=== PATIENT | male | born 1970 | race Caucasian/White ===

== ENCOUNTER 2017-10-01 09:11 | Emergency (ER) | payer BC ==
[2017-10-01 09:47] VITALS: BP 118/79
--- NOTE | 2017-10-01 10:38 | UC ---
General HPI - HPI Summary HPI Summary: pt states wears cpap and noted pain to R side of his cheek 2 days ago. the area is now swollen and he has a puffy spot(points to R upper gum by molars). denies dental pain. - History of Current Complaint Chief Complaint: UCDentalProblem Stated Complaint: DENTAL COMPLAINT/FACIAL SWELLING Time Seen by Provider: 10/01/17 10:31 Hx Obtained From: Patient Onset/Duration: Gradual Onset Timing: Constant Pain Intensity: 7 Aggravating: pressure from cpap mask. Alleviating: nothing - Allergy/Home Medications Allergies/Adverse Reactions: Allergies Allergy/AdvReac Type Severity Reaction Status Date / Time meperidine [From Demerol] Allergy Unknown Verified 10/01/17 09:45 Reaction Details PMH/Surg Hx/FS Hx/Imm Hx - Additional Past Medical History Additional PMH: MALIKA - Surgical History Surgical History: Yes Surgery Procedure, Year, and Place: knee surgery. right shoulder surgery - Family History Known Family History: Positive: Hypertension - Social History Occupation: Employed Full-time Lives: With Family Alcohol Use: Occasionally Substance Use Type: None Smoking Status (MU): Never Smoked Tobacco - Immunization History Vaccination Up to Date: Yes Review of Systems Constitutional: Negative Skin: Negative Eyes: Negative ENT: Negative Respiratory: Negative Cardiovascular: Negative Gastrointestinal: Negative Genitourinary: Negative Motor: Negative Neurovascular: Negative Musculoskeletal: Negative Neurological: Negative Psychological: Negative Is Patient Immunocompromised?: No All Other Systems Reviewed And Are Negative: Yes Physical Exam Triage Information Reviewed: Yes Appearance: Well-Appearing Vital Signs: Initial Vital Signs Temp 98.6 F 10/01/17 09:41 Pulse 66 10/01/17 09:41 Resp 17 10/01/17 09:41 BP 118/79 10/01/17 09:41 Pulse Ox 100 10/01/17 09:41 Eyes: Positive: Conjunctiva Clear ENT: Positive: Pharynx normal, TMs normal. Negative: Nasal congestion, Nasal drainage Dental: Positive: Abscess @ - R upper gum lateral to molars Neck: Positive: Supple, Nontender, No Lymphadenopathy Respiratory: Positive: Lungs clear, Normal breath sounds Cardiovascular: Positive: RRR, No Murmur Abdomen Description: Positive: Nontender, No Organomegaly, Soft Bowel Sounds: Positive: Present Musculoskeletal: Positive: ROM Intact Neurological: Positive: Alert Psychological: Positive: Age Appropriate Behavior Skin Exam: Normal Procedures - Procedure Summary Procedure Summary: time out done. local with 1% lidocaine and 30g. aspirated 0.5ml with 18g needle. minimal bleeded that stopped after pressure. pt noted less pressure and swelling after. Course/Dx - Course Course Of Treatment: aspirated abscess and pt advised of need for f/u oral surgeon. advised to call today. - Differential Dx - Multi-Symptom Provider Diagnoses: R upper gum infection/abscess Discharge - Sign-Out/Discharge Documenting (check all that apply): Discharge/Admit/Transfer - Discharge Plan Condition: Stable Disposition: HOME Prescriptions: Amoxicillin PO (*) [Amoxicillin 875 MG (*)] 875 mg PO BID #14 tab Patient Education Materials: Dental Abscess (ED) Referrals: Davide Egan DMD [Doctor of Dental Medicine] - As Soon As Possible - Billing Disposition and Condition Condition: STABLE Disposition: HOME
[2017-10-01] MEDS ORDERED: Lidocaine 1% MPF* 2 ML VIAL INJ ONE (10:39)
== END 2017-10-01 11:27 | disposition home or self-care (01) ==
LOC: UCCORT 09:11
DX: K05.10 Chronic gingivitis, plaque induced (principal); K05.219 Aggressive periodontitis, localized, unspecified severity; Z88.5 Allergy status to narcotic agent
CPT/HCPCS: 41800; 99212; G0463